=== PATIENT | female | born 1965 | race Caucasian/White ===

== ENCOUNTER 2019-06-30 14:48 | Emergency (ER) | payer OTHER ==
[~2019-06-30] VITALS: Ht 157.5 cm; Wt 47.6 kg
[2019-06-30] MEDS ORDERED: KETOROLAC TROMETHAMINE 30 MG/ML VIAL IV STA (15:35)
[2019-06-30] MEDS ORDERED: CEFTRIAXONE SOD 1 GM/NS 50 ML 50 ML IV ONE (15:45)
[2019-06-30] MEDS ORDERED: AZITHROMYCIN 250 MG TAB PO ONE (15:45)
[2019-06-30] MEDS ORDERED: SODIUM CHLORIDE 0.9% 1000ML 1,000 ML IV STA (17:33)
--- NOTE | 2019-06-30 18:12 | Diagnostic Imaging Report ---
EXAM: CT Abdomen and Pelvis WITH contrast INDICATION: ^PAIN/ IV CONTRAST ^[id number] ^[id number] COMPARISON: None. TECHNIQUE: Abdomen and pelvis were scanned utilizing a multidetector helical scanner from the lung base to the pubic symphysis after administration of IV contrast. Coronal and sagittal reformations were obtained. Routine protocol was performed. Scan was performed when during portal venous phase. IV CONTRAST: 150 mL of Isovue-370 ORAL CONTRAST: None RADIATION DOSE: Total DLP: 233.4 mGy*cm Estimated effective dose: (DLP x 0.015 x size factor) mSv COMPLICATIONS: None FINDINGS: LINES and TUBES: None. LOWER THORAX: Unremarkable HEPATOBILIARY: No focal hepatic lesions. No biliary ductal dilation. GALLBLADDER: No radio-opaque stones or sludge. No wall thickening. SPLEEN: No splenomegaly. PANCREAS: No focal masses or ductal dilatation. ADRENALS: No adrenal nodules KIDNEYS/URETERS: Kidneys enhance symmetrically. No hydronephrosis. Too small to characterize hypodensity in the upper pole of the right kidney on series 2, image 37, otherwise, no suspicious renal masses. No stones. GI TRACT: No abnormal distention, wall thickening, or evidence of bowel obstruction. Appendix is not well visualized, however, there is a tubular structure in the right lower quadrant which is mildly prominent measuring 1.1 cm on sagittal image 33 that may reflect appendix. No surrounding fat stranding or fluid collections. PELVIC ORGANS/BLADDER: The uterus is normal in size, however there is diffuse enhancement of the endometrium which appears thickened. There is also extensive prominent vessels surrounding the uterus. The urinary bladder is mildly distended and appears unremarkable. LYMPH NODES: No lymphadenopathy. VESSELS: Unremarkable. PERITONEUM / RETROPERITONEUM: No free air or fluid. BONES: Unremarkable. SOFT TISSUES: Unremarkable. IMPRESSION: 1. Mildly thickened and enhancing endometrium with prominent surrounding periuterine vessels may reflect congestive pelvic syndrome. Cannot exclude endometritis. Recommend [employer] consultation and pelvic ultrasound. 2. Appendix is not well visualized. Mildly prominent tubular structure in the right lower quadrant may reflect a mildly dilated appendix versus loop of small bowel. No surrounding fluid collections or fat stranding. If symptoms persist and no suspicious for [employer] infection, then a follow-up CT abdomen pelvis in 48 hours can be obtained. Signed by: Dr. Ashley Garcia M.D. on 06/30/2019 6:09 PM
[2019-06-30] MEDS ORDERED: ZOFRAN4 MG PO (18:35)
[2019-06-30] MEDS ORDERED: METRONIDAZOLE500 MG PO (18:35)
[2019-06-30] MEDS ORDERED: PREDNISONE50 MG PO (18:35)
[2019-06-30] MEDS ORDERED: DOXYCYCLINE HY100 MG PO (18:35)
[2019-06-30 18:40] VITALS: BP 117/57
== END 2019-06-30 18:58 | disposition home or self-care (01) ==
LOC: FSED 14:48
DX: R10.30 Lower abdominal pain, unspecified (principal); R10.2 Pelvic and perineal pain; N73.0 Acute parametritis and pelvic cellulitis; N39.0 Urinary tract infection, site not specified
CPT/HCPCS: 74177; 80053; 81003; 85025; 87491; 87591; 96374; 99284; J0696; J1885; J7030